=== PATIENT | female | born 1955 | race Caucasian/White ===

== ENCOUNTER 2022-04-13 14:29 | Emergency (ER) | payer MEDICARE, MEDICAID | END 2022-04-13 16:25 | disposition home or self-care (01) | LOC: CSHERS 14:29 | DX: S83.92XA Sprain of unspecified site of left knee, initial encounter (principal); M25.512 Pain in left shoulder; E11.9 Type 2 diabetes mellitus without complications; I10 Essential (primary) hypertension; W19.XXXA Unspecified fall, initial encounter ==

== ENCOUNTER 2022-04-19 09:29 | Inpatient (IN) | payer MEDICARE, MEDICAID ==
[2022-04-19 10:06] LABS: Bilirubin Neg (Negative); Blood, Urine Negative (Negative); Clarity Sl. Cloudy (Clear); Glucose, Urine (Dipstick) 50 mg/dL (Negative); Ketone, Urine 15 mg/dL (Negative); Leukocyte 25 (Negative); Nitrite Negative (Negative); Protein, Urine (Dipstick) Negative (Neg-Trace); Urobilinogen Normal mg/dL (Less than 2)
[2022-04-19] MEDS ORDERED: Famotidine/PF 20 mg/2ml Vial ONE (10:14)
[2022-04-19] MEDS ORDERED: Dicyclomine 20 MG/2 ML VIAL ONE (10:14)
[2022-04-19] MEDS ORDERED: Morphine 4 MG/ML VIAL ONE ×2 (10:14→13:45)
[2022-04-19] MEDS ORDERED: Ondansetron PF 4 MG/2 ML Vial ONE (10:14)
[2022-04-19 10:36] LABS: RBC/HPF 0-3 HPF (0-3)
[2022-04-19 10:37] LABS: Bacteria/HPF Rare-Few HPF (None Seen); Mucous/LPF 2+ LPF (<2+); Renal Epithelial 0-3 HPF (None Seen); Squamous Epithelial 0-3 HPF (0-3)
[2022-04-19 10:56] LABS: #Eosinphils 0.1 10x3/uL (0.0-0.5); #Monocytes 1.1 10x3/uL (0.0-1.1); #Neutrophils 8.5 10x3/uL (1.5-8.4); %Basophils 0.3 % (0.0-2.0); %Eosinophils 0.4 % (0.0-6.0); %Lymphocytes 14.1 % (18.0-47.0); %Monocytes 9.4 % (0.0-10.0); %Neutrophils 75.2 % (40.0-75.0); Hemoglobin 10.7 g/dL (12.0-15.5); Mean Corpuscular HGB CONC 31.1 g/dL (32.0-36.0); Mean Corpuscular Hemoglobin 22.7 pg (27.0-33.0); Mean Platelet Volume 9.8 fl (7.4-10.4); Platelet Count 232 10x3/uL (150-450); RBC Distribution Width 17.8 % (11.5-14.5); Red Blood Cell (RBC) Count 4.71 10x6/uL (3.90-5.03); White Blood Cell (WBC) Count 11.3 10x3/uL (3.5-10.5)
[2022-04-19 11:14] LABS: ALT (SGPT) 16 U/L (8-55); AST (SGOT) 17 U/L (5-34); Albumin 4.3 g/dL (3.4-4.8); Alkaline Phosphatase 76 U/L (40-110); Anion Gap 15 mmol/L (10-20); BUN (Urea Nitrogen) 9 mg/dL (9.8-20.1); Bilirubin, Total 0.7 mg/dL (0.2-1.2); Calc. Creatinine Clearance 0 mL/min (70-130); Calcium 9.5 mg/dL (7.8-10.44); Carbon Dioxide 20 mmol/L (23-31); Chloride 105 mmol/L (98-107); Estimated GFR 86; Globulin 2.4 g/dL (2.4-3.5); Glucose 238 mg/dL (80-115); Potassium 4.1 mmol/L (3.5-5.1); Protein, Total 6.7 g/dL (5.8-8.1); Sodium 136 mmol/L (136-145)
[2022-04-19] MEDS ORDERED: Iopamidol 300 61% 100 ML VIAL FS ONE (11:39)
[2022-04-19] MEDS ORDERED: metroNIDAZOLE 500 MG/100 ML BAG ONE (13:05)
[2022-04-19 13:34] LABS: Lactic Acid 1.8 mmol/L (0.5-2.2)
[2022-04-19] MEDS ORDERED: HumaLOG 300 UNITS/3 ML VIAL SC PRN ×2 (14:11)
[2022-04-19] MEDS ORDERED: Dextrose 50% Abboject 50 ML SYRINGE SLOW IVP PRN (14:11)
[2022-04-19] MEDS ORDERED: Dextrose 5% in Water 1,000 ML IV PRN (14:11)
[2022-04-19] MEDS ORDERED: Acetaminophen 650 MG Suppository PR PRN (14:13)
[2022-04-19] MEDS ORDERED: Ondansetron ODT 4 MG TAB PO PRN (14:13)
[2022-04-19] MEDS ORDERED: Ondansetron PF 4 MG/2 ML Vial IVP PRN (14:13)
[2022-04-19] MEDS ORDERED: hydrALAZINE 20 MG/ML VIAL SLOW IVP PRN (14:22)
[2022-04-19] MEDS ORDERED: Electrolyte Replacement Protocol 1 EACH FS SCH (14:30)
[2022-04-19 14:55] VITALS: BMI 34.4
[2022-04-19] MEDS: Morphine 2 MG/ML VIAL SLOW IVP PRN ×2 (16:00→20:04)
[2022-04-19] MEDS: Sodium Chloride 0.9% 1,000 ML IV SCH ×2 (18:06→22:53)
[2022-04-19] MEDS: Acetaminophen 325 MG TAB PO PRN ×2 (18:13→22:59)
[2022-04-19] MEDS: Famotidine/PF 20 mg/2ml Vial SLOW IVP SCH (20:04)
[2022-04-19] MEDS: Melatonin 3 MG TAB PO PRN (20:20)
[2022-04-19] MEDS ORDERED: Bupropion 150 MG SR TAB PO SCH (21:00)
[2022-04-19] MEDS: metroNIDAZOLE 500 MG in Premix Bag 1 BAG IVPB SCH (22:53)
[2022-04-20] MEDS: Morphine 2 MG/ML VIAL SLOW IVP PRN ×3 (00:27→09:37)
[2022-04-20 04:49] LABS: #Eosinphils 0.1 10x3/uL (0.0-0.5); #Neutrophils 5.4 10x3/uL (1.5-8.4); %Basophils 0.3 % (0.0-2.0); %Eosinophils 0.9 % (0.0-6.0); %Lymphocytes 26.8 % (18.0-47.0); %Monocytes 10.8 % (0.0-10.0); %Neutrophils 60.8 % (40.0-75.0); Hemoglobin 8.9 g/dL (12.0-15.5); Mean Corpuscular HGB CONC 31.6 g/dL (32.0-36.0); Mean Corpuscular Hemoglobin 23.3 pg (27.0-33.0); Mean Corpuscular Volume 73.8 fl (81.6-98.3); Mean Platelet Volume 9.6 fl (7.4-10.4); Platelet Count 181 10x3/uL (150-450); RBC Distribution Width 18.3 % (11.5-14.5); Red Blood Cell (RBC) Count 3.82 10x6/uL (3.90-5.03); White Blood Cell (WBC) Count 8.9 10x3/uL (3.5-10.5)
[2022-04-20 05:10] LABS: Anion Gap 12 mmol/L (10-20); BUN (Urea Nitrogen) 7 mg/dL (9.8-20.1); Calc. Creatinine Clearance 117 mL/min (70-130); Calcium 8.4 mg/dL (7.8-10.44); Carbon Dioxide 22 mmol/L (23-31); Chloride 111 mmol/L (98-107); Estimated GFR 94; Glucose 94 mg/dL (80-115); Iron 12 ug/dL (50-170); Iron Binding Capacity, Total 241 mcg/dL (265-497); Magnesium 1.9 mg/dL (1.6-2.6); Potassium 3.6 mmol/L (3.5-5.1); Sodium 141 mmol/L (136-145)
[2022-04-20] MEDS: Sodium Chloride 0.9% 1,000 ML IV SCH (05:16)
[2022-04-20] MEDS: metroNIDAZOLE 500 MG in Premix Bag 1 BAG IVPB SCH ×3 (05:18→22:05)
[2022-04-20] MEDS ORDERED: Levothyroxine Sodium 75 MCG TAB PO SCH ×2 (06:00→07:00)
[2022-04-20] MEDS ORDERED: Magnesium 2 GM/50 ML(in water) 2 GM in Premix Bag 1 BAG IVPB SCH (06:00)
[2022-04-20 07:57] LABS: SARS-CoV-2 NAA Rapid Test Not Detected (NotDetected)
[2022-04-20] MEDS: buPROPion 75 MG TAB PO SCH (08:16)
[2022-04-20] MEDS: Famotidine/PF 20 mg/2ml Vial SLOW IVP SCH ×2 (08:17→20:45)
[2022-04-20] MEDS ORDERED: Lisinopril 20 MG TAB PO SCH (09:00)
[2022-04-20] MEDS ORDERED: Morphine 4 MG/ML VIAL SLOW IVP PRN (10:57)
[2022-04-20] MEDS: HYDROcodone/Acetaminophen 5/325 mg Tablet PO PRN ×3 (11:06→20:45)
[2022-04-20] MEDS ORDERED: HYDROmorphone 0.5 MG/0.5 ML SYRINGE SLOW IVP SCH (12:00)
[2022-04-20 12:54] LABS: Hemoglobin A1c 6.5 % (4.0-6.0)
[2022-04-20] MEDS: Melatonin 3 MG TAB PO PRN (20:45)
[2022-04-20] MEDS ORDERED: OLANZapine 5 MG TAB PO SCH (21:00)
[2022-04-21] MEDS: Sodium Chloride 0.9% 1,000 ML IV SCH ×3 (00:05→09:03)
[2022-04-21] MEDS: metroNIDAZOLE 500 MG in Premix Bag 1 BAG IVPB SCH ×2 (05:18→13:38)
[2022-04-21] MEDS: HYDROcodone/Acetaminophen 5/325 mg Tablet PO PRN ×3 (05:19→13:38)
[2022-04-21] MEDS ORDERED: Levothyroxine Sodium 75 MCG TAB PO SCH (06:00)
[2022-04-21 06:08] LABS: #Eosinphils 0.2 10x3/uL (0.0-0.5); #Monocytes 0.5 10x3/uL (0.0-1.1); #Neutrophils 2.6 10x3/uL (1.5-8.4); %Basophils 0.6 % (0.0-2.0); %Eosinophils 3.8 % (0.0-6.0); %Lymphocytes 33.5 % (18.0-47.0); %Monocytes 9.7 % (0.0-10.0); %Neutrophils 51.6 % (40.0-75.0); Hemoglobin 9.1 g/dL (12.0-15.5); Mean Corpuscular HGB CONC 32.2 g/dL (32.0-36.0); Mean Corpuscular Hemoglobin 23.5 pg (27.0-33.0); Mean Corpuscular Volume 72.9 fl (81.6-98.3); Mean Platelet Volume 9.5 fl (7.4-10.4); Platelet Count 189 10x3/uL (150-450); RBC Distribution Width 17.7 % (11.5-14.5); Red Blood Cell (RBC) Count 3.88 10x6/uL (3.90-5.03)
[2022-04-21 06:24] LABS: ALT (SGPT) 13 U/L (8-55); AST (SGOT) 14 U/L (5-34); Albumin 3.4 g/dL (3.4-4.8); Alkaline Phosphatase 60 U/L (40-110); Anion Gap 12 mmol/L (10-20); BUN (Urea Nitrogen) 8 mg/dL (9.8-20.1); Bilirubin, Direct 0.2 mg/dL (0.1-0.3); Bilirubin, Total 0.5 mg/dL (0.2-1.2); Calc. Creatinine Clearance 120 mL/min (70-130); Calcium 8.6 mg/dL (7.8-10.44); Carbon Dioxide 22 mmol/L (23-31); Chloride 110 mmol/L (98-107); Estimated GFR 96; Glucose 148 mg/dL (80-115); Magnesium 2.1 mg/dL (1.6-2.6); Potassium 3.8 mmol/L (3.5-5.1); Protein, Total 5.5 g/dL (5.8-8.1); Sodium 140 mmol/L (136-145)
[2022-04-21] MEDS ORDERED: Ferrous Sulfate 325 MG TAB PO SCH (08:00)
[2022-04-21] MEDS: Famotidine/PF 20 mg/2ml Vial SLOW IVP SCH (09:00)
[2022-04-21] MEDS: buPROPion 75 MG TAB PO SCH (09:00)
[2022-04-21] MEDS ORDERED: Enoxaparin Sodium 40 MG/0.4 ML SYRINGE SC SCH (09:00)
[2022-04-21 12:52] VITALS: BP 138/69; TEMP 98.1
[2022-04-21] MEDS ORDERED: Lisinopril 20 MG TAB PO SCH (21:00)
[2022-04-22] MEDS ORDERED: Enoxaparin Sodium 40 MG/0.4 ML SYRINGE SC SCH (09:00)
== END 2022-04-21 15:50 | disposition home or self-care (01) | DRG 392 ==
LOC: CSHERS 09:29 → CSHTELE 14:42 → OBSVTOIN 04-20 17:21
PROVIDERS: ADMIT Family Medicine; ATTEND Family Medicine
DX: K57.32 Diverticulitis of large intestine without perforation or abscess without bleeding (principal); E87.20 Acidosis, unspecified; Z20.822 Contact with and (suspected) exposure to COVID-19; D64.9 Anemia, unspecified; E11.9 Type 2 diabetes mellitus without complications; I10 Essential (primary) hypertension; F41.9 Anxiety disorder, unspecified; E03.9 Hypothyroidism, unspecified; F32.A Depression, unspecified; N28.1 Cyst of kidney, acquired; Z88.0 Allergy status to penicillin; Z79.890 Hormone replacement therapy; Z79.899 Other long term (current) drug therapy; Z90.710 Acquired absence of both cervix and uterus
CPT/HCPCS: 36415; 36416; 74177; 80048; 80053; 80076; 81003; 81015; 82728; 83036; 83540; 83550; 83605; 83735; 84443; 85025; 86850; 86900; 86901; 87040; 94760; 96375; 96376; G0378; J0744; J1170; J2270; J2405; J3475; J7050; Q9967; S0028

== ENCOUNTER 2022-10-18 12:51 | Outpatient (CLI) | payer MEDICARE, MEDICAID ==
[~2022-10-18 12:51] MED LIST: Iopamidol 370 76% 100 ML VIAL ONE
== END 2022-10-18 12:52 | disposition home or self-care (01) ==
LOC: CSHCT 12:51
PROVIDERS: ATTEND Family Medicine
DX: K57.32 Diverticulitis of large intestine without perforation or abscess without bleeding (principal)
CPT/HCPCS: 74177; 82565

== ENCOUNTER 2023-04-06 13:14 | Outpatient (CLI) | payer MEDICARE, MEDICAID | END 2023-04-06 13:15 | disposition home or self-care (01) | LOC: CSHMAMMO 13:14 | PROVIDERS: ATTEND Family Medicine | DX: Z12.31 Encounter for screening mammogram for malignant neoplasm of breast (principal) | CPT/HCPCS: 77063; 77067 ==

== ENCOUNTER 2023-11-04 08:30 | Inpatient (IN) | payer MEDICARE, MEDICAID ==
[2023-11-04] MEDS ORDERED: Ondansetron PF 4 MG/2 ML Vial ONE (08:55)
[2023-11-04] MEDS ORDERED: Morphine 4 MG/ML VIAL ONE ×3 (08:55→13:18)
[2023-11-04 09:20] LABS: #Basophils 0.02 10x3/uL (0.0-0.2); #Eosinphils 0.05 10x3/uL (0.0-0.5); #Monocytes 0.91 10x3/uL (0.0-1.1); #Neutrophils 6.89 10x3/uL (1.5-8.4); %Basophils 0.2 % (0.0-2.0); %Eosinophils 0.5 % (0.0-6.0); %Lymphocytes 20.4 % (18.0-47.0); %Monocytes 9.2 % (0.0-10.0); %Neutrophils 69.4 % (40.0-75.0); Hematocrit 41.4 % (34.9-44.5); Hemoglobin 14.6 g/dL (12.0-15.5); Mean Corpuscular HGB CONC 35.3 g/dL (32.0-36.0); Mean Platelet Volume 9.7 fl (7.4-10.4); Platelet Count 178 10x3/uL (150-450); RBC Distribution Width 12.8 % (11.5-14.5); Red Blood Cell (RBC) Count 4.87 10x6/uL (3.90-5.03); White Blood Cell (WBC) Count 9.9 10x3/uL (3.5-10.5)
[2023-11-04 09:39] LABS: ALT (SGPT) 23 U/L (8-55); AST (SGOT) 21 U/L (5-34); Alkaline Phosphatase 78 U/L (40-110); Anion Gap 17 mmol/L (10-20); BUN (Urea Nitrogen) 10 mg/dL (9.8-20.1); Bilirubin, Total 1.2 mg/dL (0.2-1.2); Calc. Creatinine Clearance 0 mL/min (70-130); Calcium 9.6 mg/dL (7.8-10.44); Carbon Dioxide 21 mmol/L (23-31); Chloride 104 mmol/L (98-107); Estimated GFR 82; Globulin 3.1 g/dL (2.4-3.5); Glucose 169 mg/dL (80-115); Lipase 37 U/L (8-78); Potassium 4.1 mmol/L (3.5-5.1); Protein, Total 7.1 g/dL (5.8-8.1); Sodium 138 mmol/L (136-145)
[2023-11-04] MEDS ORDERED: Iopamidol 300 61% 100 ML VIAL FS ONE (10:54)
[2023-11-04] MEDS ORDERED: metroNIDAZOLE 500 MG (100 mL) BAG ONE (11:25)
[2023-11-04] MEDS ORDERED: Bisacodyl 5 MG TAB PO PRN (13:17)
[2023-11-04] MEDS ORDERED: Senokot S 8.6-50 MG TAB PO PRN (13:17)
[2023-11-04] MEDS ORDERED: Acetaminophen 325 MG TAB PO PRN (13:17)
[2023-11-04] MEDS ORDERED: Bisacodyl 10 MG SUPP PR PRN (13:17)
[2023-11-04] MEDS ORDERED: Electrolyte Replacement Protocol 1 EACH FS SCH (13:30)
[2023-11-04] MEDS: Ciprofloxacin Lactate/D5W 400 MG in Premix 1 BAG IVPB SCH (13:50)
[2023-11-04 14:23] VITALS: BMI 36.8
[2023-11-04] MEDS: HYDROcodone/Acetaminophen 5/325 mg Tablet PO PRN (15:57)
[2023-11-04] MEDS ORDERED: Morphine 2 MG/ML VIAL SLOW IVP PRN (18:15)
[2023-11-04] MEDS ORDERED: Dextrose 5% in Water 1,000 ML IV PRN (18:15)
[2023-11-04] MEDS ORDERED: Dextrose 50% Abboject 50 ML SYRINGE SLOW IVP PRN (18:15)
[2023-11-04] MEDS ORDERED: Glucagon 1 MG/ML KIT IM PRN (18:15)
[2023-11-04] MEDS: metroNIDAZOLE 500 MG TAB PO SCH (21:31)
[2023-11-05 06:06] LABS: #Basophils 0.05 10x3/uL (0.0-0.2); #Eosinphils 0.13 10x3/uL (0.0-0.5); %Basophils 0.8 % (0.0-2.0); %Eosinophils 2.1 % (0.0-6.0); %Lymphocytes 34.5 % (18.0-47.0); %Monocytes 9.8 % (0.0-10.0); %Neutrophils 52.3 % (40.0-75.0); Hematocrit 37.2 % (34.9-44.5); Hemoglobin 12.5 g/dL (12.0-15.5); Mean Corpuscular HGB CONC 33.6 g/dL (32.0-36.0); Mean Corpuscular Hemoglobin 29.5 pg (27.0-33.0); Mean Corpuscular Volume 87.7 fl (81.6-98.3); Mean Platelet Volume 9.5 fl (7.4-10.4); Platelet Count 168 10x3/uL (150-450); Red Blood Cell (RBC) Count 4.24 10x6/uL (3.90-5.03); White Blood Cell (WBC) Count 6.1 10x3/uL (3.5-10.5)
[2023-11-05 06:18] LABS: Anion Gap 13 mmol/L (10-20); BUN (Urea Nitrogen) 10 mg/dL (9.8-20.1); Calc. Creatinine Clearance 120 mL/min (70-130); Carbon Dioxide 22 mmol/L (23-31); Chloride 105 mmol/L (98-107); Estimated GFR 91; Glucose 141 mg/dL (80-115); Magnesium 2.1 mg/dL (1.6-2.6); Phosphorus 3.5 mg/dL (2.3-4.7); Potassium 3.7 mmol/L (3.5-5.1); Sodium 136 mmol/L (136-145)
[2023-11-05] MEDS: Levothyroxine Sodium 75 MCG TAB PO SCH (07:45)
[2023-11-05] MEDS: OLANZapine 5 MG TAB PO SCH (08:56)
[2023-11-05] MEDS: Pioglitazone HCl 15 MG TAB PO SCH (08:57)
[2023-11-05] MEDS: Enoxaparin 40 MG (0.4 mL) SYRINGE SC SCH (08:57)
[2023-11-05] MEDS: cefTRIAXone\\ROCEPHIN 2 GM in Sodium Chloride 0.9% 100 ML IVPB SCH ×2 (08:57→09:00)
[2023-11-05] MEDS: BuPROPion 100 MG SR.TAB PO SCH (08:58)
[2023-11-05] MEDS: Docusate 100 MG CAP PO SCH ×2 (09:26→20:38)
[2023-11-05] MEDS ORDERED: HumaLOG 300 UNITS/3 ML VIAL SC PRN (12:01)
[2023-11-05] MEDS ORDERED: HYDROcodone/Acetaminophen 5/325 mg Tablet PO PRN (12:02)
[2023-11-05] MEDS: Ketorolac Tromethamine 30 MG (1 mL) VIAL IVP SCH (12:43)
[2023-11-05] MEDS: NS 0.9% w/ 20 MEQ KCL 1,000 ML/1,000 ML BAG IV SCH (13:36)
[2023-11-05] MEDS: Pantoprazole DR 40 MG TAB PO SCH (20:38)
[2023-11-05] MEDS ORDERED: Docusate 100 MG CAP PO SCH (21:00)
[2023-11-06] MEDS: HumaLOG 300 UNITS/3 ML VIAL SC PRN (06:12)
[2023-11-06] MEDS: Ketorolac Tromethamine 30 MG (1 mL) VIAL IVP SCH (12:30)
[2023-11-06] MEDS ORDERED: Acetaminophen 325 MG TAB PO PRN (12:30)
[2023-11-06] MEDS: Acetaminophen 325 MG TAB PO SCH (15:05)
[2023-11-07 03:57] LABS: #Basophils 0.03 10x3/uL (0.0-0.2); #Eosinphils 0.15 10x3/uL (0.0-0.5); #Monocytes 0.43 10x3/uL (0.0-1.1); #Neutrophils 2.36 10x3/uL (1.5-8.4); %Basophils 0.6 % (0.0-2.0); %Eosinophils 3.1 % (0.0-6.0); %Lymphocytes 37.6 % (18.0-47.0); %Monocytes 8.9 % (0.0-10.0); %Neutrophils 49.2 % (40.0-75.0); Hematocrit 36.1 % (34.9-44.5); Hemoglobin 12.6 g/dL (12.0-15.5); Mean Corpuscular HGB CONC 34.9 g/dL (32.0-36.0); Mean Corpuscular Hemoglobin 29.5 pg (27.0-33.0); Mean Corpuscular Volume 84.5 fl (81.6-98.3); Mean Platelet Volume 9.3 fl (7.4-10.4); Platelet Count 188 10x3/uL (150-450); RBC Distribution Width 12.4 % (11.5-14.5); Red Blood Cell (RBC) Count 4.27 10x6/uL (3.90-5.03); White Blood Cell (WBC) Count 4.8 10x3/uL (3.5-10.5)
[2023-11-07 04:04] LABS: Anion Gap 12 mmol/L (10-20); BUN (Urea Nitrogen) 7 mg/dL (9.8-20.1); Calc. Creatinine Clearance 127 mL/min (70-130); Calcium 9.1 mg/dL (7.8-10.44); Carbon Dioxide 21 mmol/L (23-31); Chloride 107 mmol/L (98-107); Estimated GFR 96; Glucose 142 mg/dL (80-115); Phosphorus 3.4 mg/dL (2.3-4.7); Potassium 3.7 mmol/L (3.5-5.1); Sodium 136 mmol/L (136-145)
[2023-11-07] MEDS: Magnesium 2 GM/50 ML(in water) 2 GM in Premix 1 BAG IVPB SCH (08:51)
[2023-11-07 10:37] VITALS: TEMP 98
[2023-11-07] MEDS: Lisinopril 20 MG TAB PO SCH (10:56)
[2023-11-07 13:09] VITALS: BP 140/80
== END 2023-11-07 11:10 | disposition home or self-care (01) | DRG 392 ==
LOC: CSHERS 08:30 → CSHTELE 14:06 → OBSVTOIN 11-05 12:04
PROVIDERS: ADMIT Internal Medicine; ATTEND Internal Medicine
DX: K57.32 Diverticulitis of large intestine without perforation or abscess without bleeding (principal); E87.20 Acidosis, unspecified; E11.9 Type 2 diabetes mellitus without complications; E86.0 Dehydration; G47.33 Obstructive sleep apnea (adult) (pediatric); N28.1 Cyst of kidney, acquired; I10 Essential (primary) hypertension; E03.9 Hypothyroidism, unspecified; Z88.0 Allergy status to penicillin; Z88.8 Allergy status to other drugs, medicaments and biological substances; Z79.84 Long term (current) use of oral hypoglycemic drugs; Z79.890 Hormone replacement therapy; Z79.899 Other long term (current) drug therapy
CPT/HCPCS: 36415; 36416; 74177; 80048; 80053; 83605; 83690; 83735; 84100; 85025; 93005; 93010; 96365; 96367; 96375; 96376; J0696; J0744; J1650; J1815; J1885; J2270; J2405; J3480; J3490; Q9967

== ENCOUNTER 2024-05-06 00:55 | Observation (INO) | payer MEDICARE, MEDICAID ==
[2024-05-06] MEDS ORDERED: Morphine 4 MG/ML VIAL ONE ×2 (01:38→03:04)
[2024-05-06] MEDS ORDERED: Ondansetron PF 4 MG/2 ML Vial ONE ×2 (01:39→01:40)
[2024-05-06 01:46] LABS: Bilirubin Neg (Negative); Blood, Urine Negative (Negative); Glucose, Urine (Dipstick) Normal (Negative); Ketone, Urine Negative (Negative); Leukocyte 25 (Negative); Nitrite Negative (Negative); Protein, Urine (Dipstick) Negative (Neg-Trace); Specific Gravity, Urine 1.015 (1.005-1.030); Urobilinogen Normal mg/dL (Less than 2)
[2024-05-06 01:58] LABS: Clarity Clear (Clear)
[2024-05-06 01:59] LABS: #Basophils 0.03 10x3/uL (0.0-0.2); #Eosinophils 0.07 10x3/uL (0.0-0.5); #Monocytes 0.82 10x3/uL (0.0-1.1); #Neutrophils 6.99 10x3/uL (1.5-8.4); %Basophils 0.3 % (0.0-2.0); %Eosinophils 0.7 % (0.0-6.0); %Monocytes 8.5 % (0.0-10.0); %Neutrophils 72.2 % (40.0-75.0); Hematocrit 40.7 % (34.9-44.5); Hemoglobin 13.8 g/dL (12.0-15.5); Mean Corpuscular HGB CONC 33.9 g/dL (32.0-36.0); Mean Corpuscular Hemoglobin 29.1 pg (27.0-33.0); Mean Corpuscular Volume 85.7 fL (81.6-98.3); Mean Platelet Volume 9.4 fL (7.4-10.4); Platelet Count 216 10x3/uL (150-450); RBC Distribution Width 12.4 % (11.5-14.5); Red Blood Cell (RBC) Count 4.75 10x6/uL (3.90-5.03); White Blood Cell (WBC) Count 9.7 10x3/uL (3.5-10.5)
[2024-05-06 02:03] LABS: Bacteria/HPF 1+ HPF (None Seen); CAUTI Indications for Culture Pelvic or flank pain; RBC/HPF 0-3 HPF (0-3)
[2024-05-06 02:04] LABS: Urine Culture Reflex No No
[2024-05-06 02:17] LABS: ALT (SGPT) 24 U/L (8-55); AST (SGOT) 27 U/L (5-34); Albumin 3.9 g/dL (3.4-4.8); Alkaline Phosphatase 81 U/L (40-110); Anion Gap 20 mmol/L (10-20); BUN (Urea Nitrogen) 13 mg/dL (9.8-20.1); Calc. Creatinine Clearance 0 mL/min (70-130); Calcium 10.3 mg/dL (7.8-10.44); Carbon Dioxide 18 mmol/L (23-31); Chloride 102 mmol/L (98-107); Estimated GFR 81; Globulin 3.1 g/dL (2.4-3.5); Glucose 190 mg/dL (80-115); Lipase 41 U/L (8-78); Potassium 4.4 mmol/L (3.5-5.1); Sodium 136 mmol/L (136-145)
[2024-05-06] MEDS ORDERED: LevoFLOXacin D5W 500 mg (100 mL) BAG ONE (05:19)
[2024-05-06] MEDS ORDERED: Senokot S 8.6-50 MG TAB PO PRN (05:20)
[2024-05-06] MEDS ORDERED: Zolpidem Tartrate 5 MG TAB PO PRN (05:20)
[2024-05-06] MEDS ORDERED: Dextrose 50% Abboject 50 ML SYRINGE SLOW IVP PRN (05:20)
[2024-05-06] MEDS ORDERED: Acetaminophen 325 MG TAB PO PRN (05:20)
[2024-05-06] MEDS ORDERED: Dextrose 5% in Water 1,000 ML IV PRN (05:20)
[2024-05-06] MEDS ORDERED: traMADol HCl 50 MG TAB PO PRN (05:20)
[2024-05-06] MEDS ORDERED: Ondansetron PF 4 MG/2 ML Vial IVP PRN (05:20)
[2024-05-06] MEDS ORDERED: Calcium Carbonate 500 MG ChewTAB PO PRN (05:20)
[2024-05-06] MEDS ORDERED: Glucagon 1 MG/ML KIT IM PRN (05:20)
[2024-05-06] MEDS ORDERED: Insulin Lispro 100 UNIT/ML 10 ML VIAL SC PRN (05:21)
[2024-05-06] MEDS ORDERED: Morphine 2 MG/ML VIAL SLOW IVP PRN (05:28)
[2024-05-06] MEDS: Morphine 4 MG/ML VIAL SLOW IVP PRN (06:50)
[2024-05-06] MEDS: Lactated Ringer's 500 ML IV SCH (06:51)
[2024-05-06] MEDS: metroNIDAZOLE 500 MG in Premix 1 BAG IVPB SCH (06:56)
[2024-05-06 07:13] VITALS: BMI 34.4
[2024-05-06] MEDS: Lactated Ringer's 1,000 ML IV SCH (08:44)
[2024-05-06] MEDS: Pioglitazone HCl 15 MG TAB PO SCH (08:52)
[2024-05-06] MEDS: Lisinopril 20 MG TAB PO SCH (08:52)
[2024-05-06] MEDS: OLANZapine 5 MG TAB PO SCH (08:53)
[2024-05-06] MEDS: glipiZIDE 10 MG TAB PO SCH (08:53)
[2024-05-06] MEDS: Bupropion 150 MG SR.TAB PO SCH (08:53)
[2024-05-06] MEDS: Famotidine/PF 20 mg/2ml Vial SLOW IVP SCH (08:53)
[2024-05-06] MEDS: HYDROcodone/Acetaminophen 7.5/325 mg Tablet PO PRN ×2 (11:07→15:27)
[2024-05-06] MEDS ORDERED: Iopamidol 370 76% 100 ML VIAL ONE (11:16)
[2024-05-06] MEDS: Enoxaparin 40 MG (0.4 mL) SYRINGE SC SCH (20:08)
[2024-05-07 03:40] LABS: #Basophils 0.02 10x3/uL (0.0-0.2); #Eosinophils 0.15 10x3/uL (0.0-0.5); #Neutrophils 3.28 10x3/uL (1.5-8.4); %Basophils 0.3 % (0.0-2.0); %Eosinophils 2.4 % (0.0-6.0); %Monocytes 11.4 % (0.0-10.0); %Neutrophils 53.4 % (40.0-75.0); Hematocrit 34.4 % (34.9-44.5); Hemoglobin 11.4 g/dL (12.0-15.5); Mean Corpuscular HGB CONC 33.1 g/dL (32.0-36.0); Mean Corpuscular Hemoglobin 28.7 pg (27.0-33.0); Mean Corpuscular Volume 86.6 fL (81.6-98.3); Mean Platelet Volume 9.2 fL (7.4-10.4); Platelet Count 183 10x3/uL (150-450); RBC Distribution Width 12.7 % (11.5-14.5); Red Blood Cell (RBC) Count 3.97 10x6/uL (3.90-5.03); White Blood Cell (WBC) Count 6.2 10x3/uL (3.5-10.5)
[2024-05-07 03:55] LABS: Anion Gap 13 mmol/L (10-20); BUN (Urea Nitrogen) 9 mg/dL (9.8-20.1); Calc. Creatinine Clearance 112 mL/min (70-130); Calcium 9.1 mg/dL (7.8-10.44); Carbon Dioxide 22 mmol/L (23-31); Chloride 107 mmol/L (98-107); Estimated GFR 92; Glucose 152 mg/dL (80-115); Potassium 3.9 mmol/L (3.5-5.1); Sodium 138 mmol/L (136-145)
[2024-05-07] MEDS: LevoFLOXacin 500 mg/D5W 500 MG in Premix 1 BAG IVPB SCH (05:07)
[2024-05-07 12:27] VITALS: BP 99/56; TEMP 99.1
== END 2024-05-07 12:38 | disposition home or self-care (01) ==
LOC: CSHERS 00:55 → CSHTELE 06:36
PROVIDERS: ADMIT Student in an Organized Health Care Education/Training Program; ATTEND Internal Medicine
DX: A41.9 Sepsis, unspecified organism (principal); K57.92 Diverticulitis of intestine, part unspecified, without perforation or abscess without bleeding; I10 Essential (primary) hypertension; E11.9 Type 2 diabetes mellitus without complications; E87.20 Acidosis, unspecified; E03.9 Hypothyroidism, unspecified; F32.A Depression, unspecified; Z90.710 Acquired absence of both cervix and uterus; Z88.0 Allergy status to penicillin; Z88.8 Allergy status to other drugs, medicaments and biological substances; Z79.890 Hormone replacement therapy; Z79.84 Long term (current) use of oral hypoglycemic drugs; Z79.82 Long term (current) use of aspirin; Z79.899 Other long term (current) drug therapy
CPT/HCPCS: 74177; 80048; 80053; 81001; 82962 ×2; 83605 ×2; 83690; 85025 ×2; 96375; 96376 ×2; G0378 ×3; J1956 ×2; J2272; J2405; J3490 ×2; J7120 ×2; Q9967; 36415; 36416; 96374